=== PATIENT | female | born 1990 | race Caucasian/White ===

== ENCOUNTER 2022-07-06 13:07 | Outpatient (CLI) | payer OTHER, SELFPAY ==
--- NOTE | ~2022-07-06 | XR_ITS ---
XR lumbar spine 2-3V DATE: 07/06/2022 13:25 INDICATION: Right hip pain, radiculopathy TECHNIQUE: AP, lateral, coned lateral lumbosacral views COMPARISON: None FINDINGS: Approximately 18 degrees rotatory levoscoliosis of the lower thoracic and lumbar spine. No fracture or bone destruction or spondylolisthesis. There is mild degenerative disc disease. The sacroiliac joints are intact. IMPRESSION: Rotatory levoscoliosis and mild degenerative change Reviewed, dictated and finalized at location B.
--- NOTE | ~2022-07-06 | XR_ITS ---
XR hip RT min 2V DATE: 07/06/2022 13:25 INDICATION: Lateral right hip pain TECHNIQUE: A PA and lateral views COMPARISON: None FINDINGS: The pubic symphysis and sacroiliac joints are intact. No fracture or dislocation, avascular necrosis or bone destruction is detected. The right hip joint s pace is intact. IMPRESSION: Negative Reviewed, dictated and finalized at location B. IMPRESSION: Negative
== END 2022-07-06 13:08 | disposition home or self-care (01) ==
LOC: ANHIMG 13:12
PROVIDERS: PCP Internal Medicine; Visit Provider Internal Medicine
DX: M25.559 Pain in unspecified hip (principal); M54.10 Radiculopathy, site unspecified
CPT/HCPCS: 72100; 73502

== ENCOUNTER 2022-08-31 11:47 | Outpatient (CLI) | payer OTHER, SELFPAY ==
--- NOTE | ~2022-08-31 | XR_ITS ---
EXAMINATION: XR shoulder LT min 2V INDICATION: Left shoulder pain TECHNIQUE: Four views of the left shoulder are submitted. COMPARISON: None FINDINGS: Normal alignment. No fracture. Glenohumeral and acromioclavicular joint spaces are normal. Soft tissues are unremarkable. IMPRESSION: 1. No acute osseous abnormality. Reviewed, dictated and finalized at location A.
== END 2022-08-31 11:48 | disposition home or self-care (01) ==
LOC: ANHIMG 11:49
PROVIDERS: PCP Internal Medicine; Visit Provider Nurse Practitioner
DX: G89.29 Other chronic pain (principal); M25.512 Pain in left shoulder
CPT/HCPCS: 73030

== ENCOUNTER 2023-05-21 08:36 | Outpatient (CLI) | payer OTHER, SELFPAY ==
--- NOTE | 2023-06-09 22:34 | WPDSLEEPSTUD ---
Sleep Study Date of Study: 05/21/23 Ordering Provider: Clifton Woodruff APRN Interpreting Physician: Mariia Licea MD Sleep Study Type: Polysomnogram Height: 1.7 m Weight: 72.575 kg Body Mass Index: 25.0 Neck Circumference (inches): 13.5 Cameron: 16 Reason for Sleep Study Daytime hypersomnia, snoring. Sleep History Re Nogueira is a 32-year-old female who presented for a sleep study for evaluation of snoring and daytime hypersomnia. She never awakens from sleep short of breath. She never awakens at night with heartburn, belching or cough. She constantly snores. She frequently snores loudly enough that others complain. She constantly has trouble sleeping when she has a cold. She never suddenly wakes up gasping for breath during the night. She never has breathing problems at night. She frequently sweats excessively at night. She never notices her heart pounding or beating irregularly during the night. She frequently falls asleep during the day. She occasionally falls asleep involuntarily and never falls asleep while driving. She never experiences loss of muscle tone with strong emotion. She frequently has trouble at work because of sleepiness. She rarely feels paralyzed on waking or falling asleep. She frequently experiences vivid dreams upon waking or falling asleep. She does not feel afraid of going to sleep. She occasionally has nightmares. She constantly recalls her dreams. She constantly has thoughts racing through her mind. She rarely feels sad or depressed. She frequently feels anxiety or worry about things. She occasionally notices parts of her body jerk. She never kicks during the night. She occasionally feels crawling or aching feelings in her legs. She never feels leg pain at night. She never grinds her teeth or has morning jaw pain. She is not bothered by pain during the day or at night and does not wake up feeling stiff, sore or achy. She has fatigue and memory problems. Normal bedtime is around 10pm the weekdays and same on the weekends, taking 5 to 10 minutes to fall asleep. She typically gets about 7 hours of sleep per night. Her wake up time is around 6:30am on the weekdays and between 7 to 7:30am on the weekends. She typically wakes up around twice per night, awake for a few minutes and able to fall back to sleep. Habits: Never tobacco smoker. Drinks about 2 caffeinated beverages per day. Drinks about 2-4 alcoholic drinks per week. No recreational substance use. [facility] Past Medical History Medical History Allergies IBS (irritable bowel syndrome) Family History Family History (Updated 04/30/23 @ 13:25 by Clifton Woodruff APRN) Father Anxiety Depression Heart attack Mother Hypertension Anxiety Depression Heart problem Sibling Depression Anxiety Grandparent Breast cancer Hypertension Social History Social History Smoking status: Never smoker Second hand tobacco smoke exposure: Yes Alcohol intake: current Drinks per week: 2 Alcohol use details: beer Substance use: never Substance use type: does not use Medications Home Medications Medication Instructions Recorded Confirmed Type loratadine 10 mg tablet (Claritin) 10 mg PO DAILY 04/25/21 09/03/22 History medroxyprogesterone 150 mg/mL 150 mg IM [id number] 04/25/21 09/03/22 History intramuscular suspension (Depo-Provera) albuterol sulfate 90 mcg/actuation 2 puff inhalation ONCE PRN 04/26/22 09/03/22 Rx aerosol inhaler bronchospasm #18 grams clindamycin phosphate 1 % topical 1 applic topical DAILY #60 mL 04/30/23 04/30/23 Rx solution spironolactone 50 mg tablet 50 mg PO BID #30 tabs 04/30/23 04/30/23 Rx tretinoin 0.05 % topical cream 1 applic topical QHS #45 grams 04/30/23 04/30/23 Rx Sleep Procedure This test was performed using the [employer] multiple channel system including EOG, EEG,
[2023-06-10 11:09] VITALS: BMI 25.0
== END 2023-05-22 07:28 | disposition home or self-care (01) ==
LOC: ANHCSM 08:37
PROVIDERS: PCP Family Medicine; Visit Provider Nurse Practitioner
DX: G47.10 Hypersomnia, unspecified (principal); R06.83 Snoring; G47.61 Periodic limb movement disorder
CPT/HCPCS: 95810

== ENCOUNTER 2024-05-08 08:25 | Outpatient (CLI) | payer OTHER, SELFPAY ==
[2024-05-08 08:45] LABS: Hematocrit 43.2 % (37.0-47.0); Hemoglobin 14.1 g/dL (12.0-15.0); Mean Corpuscular HGB Conc 32.6 g/dl (32-36); Mean Corpuscular Hemoglobin 28.6 pg (26-34); Mean Corpuscular Volume 87.6 fl (80-100); Mean Platelet Volume 10.3 fl (7.4-10.4); Platelet Count Result 218 k/mm3 (150-375); Red Blood Count 4.93 M/mm3 (4.2-5.4); Red Cell Distribution Width 11.9 % (11.5-14.5); White Blood Count 6.6 K/mm3 (4.5-10.0)
[2024-05-08 10:36] LABS: LDL Cholesterol Direct 95 mg/dL
[2024-05-08 11:39] LABS: Iron 75 ug/dL (37-170)
[2024-05-08 11:47] LABS: Alanine Aminotransferase 15 U/L (6-35); Albumin Level 4.5 g/dL (3.5-5.1); Alkaline Phosphatase 58 U/L (38-126); Anion Gap 6 mmol/L (4-12); Aspartate Amino Transferase 24 U/L (14-36); Bilirubin,Total 0.6 mg/dL (0.2-1.3); Blood Urea Nitrogen 13 mg/dL (7-17); Calcium 9.1 mg/dL (8.4-10.2); Carbon Dioxide 26 mmol/L (22-30); Chloride 108 mmol/L (98-107); Cholesterol 146 mg/dL (0-200); Estimated Glomerular Filt Rate > 60; Glucose 97 mg/dL (65-110); HDL Direct 38 mg/dL; Potassium 4.3 mmol/L (3.4-5.0); Sodium 140 mmol/L (137-145); Triglycerides 68 mg/dL (<150)
[2024-05-08 11:49] LABS: Percent Iron Saturation 24 % (20-50)
== END 2024-05-08 08:26 | disposition home or self-care (01) ==
LOC: ANHLAB 08:27
PROVIDERS: PCP Family Medicine; Visit Provider Family Medicine
DX: Z00.00 Encounter for general adult medical examination without abnormal findings (principal); G47.10 Hypersomnia, unspecified; G47.61 Periodic limb movement disorder; H91.93 Unspecified hearing loss, bilateral; L70.9 Acne, unspecified; N80.9 Endometriosis, unspecified; R06.83 Snoring; R20.0 Anesthesia of skin; G25.81 Restless legs syndrome
CPT/HCPCS: 36415; 80053; 80061; 83540; 83550; 84443; 85027

== ENCOUNTER 2024-06-08 07:49 | Outpatient (CLI) | payer OTHER, SELFPAY | END 2024-06-08 07:50 | disposition home or self-care (01) | LOC: ANHAUDIO 07:50 | PROVIDERS: PCP Family Medicine; Visit Provider Family Medicine | DX: H91.93 Unspecified hearing loss, bilateral (principal) | CPT/HCPCS: 92557; 92567 ==

== ENCOUNTER 2024-08-11 10:06 | Outpatient (CLI) | payer OTHER, SELFPAY ==
[2024-08-11 11:03] LABS: Beta HCG Quantitative < 2.39 mIU/ML
== END 2024-08-11 10:07 | disposition home or self-care (01) ==
PROVIDERS: PCP Family Medicine; Visit Provider Obstetrics & Gynecology
DX: Z30.42 Encounter for surveillance of injectable contraceptive (principal)
CPT/HCPCS: 36415; 84702